=== PATIENT | female | born 1965 | race Caucasian/White ===

== ENCOUNTER → 2018-07-28 | Outpatient (CLI) | payer OTHER ==
--- NOTE | 2018-08-03 13:08 | RAD ---
DATE: 07/28/2018 EXAM: DIGITAL SCREEN BILAT W/CAD HISTORY: Routine screening, breast implants COMPARISON: 12/16/2015 This study was interpreted with the benefit of Computerized Aided Detection (CAD). Breast Density: HETERO The breast parenchyma is heterogenously dense, which could reduce sensitivity of mammography. Breast parenchyma level C. FINDINGS: Routine and implant exclusion views of both breasts were obtained in CC and MLO projections. The breast implants appear unchanged. No new or enlarging breast densities are seen. Benign type calcifications are noted. No suspicious microcalcifications have developed. IMPRESSION: There is no mammographic evidence of malignancy in either breast. BI-RADS CATEGORY: 2 BENIGN FINDING(S) RECOMMENDED FOLLOW-UP: 12M 12 MONTH FOLLOW-UP PQRS compliance statement: Patient information was entered into a reminder system with a target due date for the next mammogram. Mammography is a sensitive method for finding small breast cancers, but it does not detect them all and is not a substitute for careful clinical examination. A negative mammogram does not negate a clinically suspicious finding and should not result in delay in biopsying a clinically suspicious abnormality. "Our facility is accredited by the [employer] Mammography Program."
== END | disposition home or self-care (01) ==
LOC: MAMMO 13:29
PROVIDERS: ATTEND Nurse Practitioner Family
DX: Z12.31 Encounter for screening mammogram for malignant neoplasm of breast (principal); N64.89 Other specified disorders of breast; Z98.82 Breast implant status
CPT/HCPCS: 77067

== ENCOUNTER 2020-05-16 19:38 | Emergency (ER) | payer OTHER ==
[~2020-05-16] VITALS: Ht 175.3 cm; Wt 64.0 kg
--- NOTE | 2020-05-16 19:51 | PHYS DOC ---
General Adult EDM: Chief Complaint: ANIMAL BITE HPI: HPI: " I got bite by a dog at the [facility]... 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 Dogs was named Ehsan..he had all his shots...I got bit about 45 min. ago..." Patient is a 55 year old female who presents with above hx and complaints of an imal bite. Patient has approximately 2.5 cm laceration to the back of pain with contusions and ecchymosis. Distal neurovascular intact. There is some swelling at bite site. Patient is right-hand dominant. No recent travel. No severe ill contacts. No history immunosuppression. Patient states she is up-to-date with tetanus. Patient states the dog is also a up-to-date with vaccinations. [employer] was notified since the bite occurred within their endorsed accident. Advised patient the dog should remain confined to the next 14 days observed for rabies. Patient to take Augmentin 875 twice a day. Patient is to receive a IM injection of Rocephin 1 g while in the emergency department Review of Systems: Review of Systems: Constitutional: Denies fever or chills Eyes: Denies change in visual acuity HENT: Denies nasal congestion or sore throat Respiratory: Denies cough or shortness of breath Cardiovascular: Denies chest pain or edema GI: Denies abdominal pain, nausea, vomiting, bloody stools or diarrhea : Denies dysuria Musculoskeletal: Dog bite to right hand Integument: Denies rash Neurologic: Denies headache, focal weakness or sensory changes Endocrine: Denies polyuria or polydipsia Lymphatic: Denies swollen glands Psychiatric: Denies depression or anxiety Family History: Family History: Noncontributory Current Medications: Current Meds: See nursing for home meds Allergies: Allergies: No known drug allergies Physical Exam: PE: Constitutional: Well developed, well nourished, no acute distress, non-toxic ap pearance. [] HENT: Normocephalic, atraumatic, bilateral external ears normal, oropharynx moist, no oral exudates, nose normal. [] Eyes: PERRLA, EOMI, conjunctiva normal, no discharge. [] Neck: Normal range of motion, no tenderness, supple, no stridor. [] Cardiovascular:Heart rate regular rhythm, no murmur [] Lungs & Thorax: Bilateral breath sounds clear to auscultation [] Abdomen: Bowel sounds normal, soft, no tenderness, no masses, no pulsatile masses. [] Skin: Warm, dry, no erythema, no rash. [] Back: No tenderness, no CVA tenderness. [] Extremities: No tenderness, no cyanosis, no clubbing, ROM intact, no edema. Except bite ivan on back of right hand as per HPI Neurologic: Alert and oriented X 3, normal motor function, normal sensory function, no focal deficits noted. [] Psychologic: Affect normal, judgement normal, mood normal. [] EKG: EKG: [] Radiology/Procedures: Radiology/Procedures: [] Heart Score: C/O Chest Pain: N/A Risk Factors: Risk Factors: DM, Current or recent (<one month) smoker, HTN, HLP, family history of CAD, obesity. Risk Scores: Score 0 - 3: 2.5% MACE over next 6 weeks - Discharge Home Score 4 - 6: 20.3% MACE over next 6 weeks - Admit for Clinical Observation Score 7 - 10: 72.7% MACE over next 6 weeks - Early Invasive Strategies Course & Med Decision Making: Course & Med Decision Making Pertinent Labs and Imaging studies reviewed. (See chart for details) Procedure note-wound care-laceration cleaned and irrigated. Application and biotic ointment applied. Dressing applied. Patient monitor closely for infection. Patient received a IM injection of Rocephin 1 g. Patient take Augm entin 875 4 7 days. Monitor for infection. Dose to be under 5 next 14 days. Impression: 1. Dog bite right hand [] Dragon Disclaimer: Dragon Disclaimer: This electronic medical record was generated, in whole or in part, using a voice recognition dictation system. Departure Departure: Referrals: TIFFANY DALY (PCP) Scripts Amoxicillin/Potassium Clav (AUGMENTIN 875-125 TABLET) 1 Each Tablet 1 TAB PO BID for bite for 7 Days, #14 TAB 0 Refills Prov: VENUS THAKUR MD 05/16/20 Jose Alejandro Disclaimer This chart was dictated in whole or in part using Voice Recognition software in a busy, high-work load, and often noisy Emergency Department environment. It may contain unintended and wholly unrecognized errors or omissions. VENUS THAKUR MD May 16, 2020 19:51
[2020-05-16] MEDS ORDERED: cefTRIAXone IM 1 GM VIAL IM ONE (20:00)
[2020-05-16 20:02] VITALS: BP 175/85
[2020-05-16] MEDS ORDERED: AMOX1TAB61 PO (20:07)
[2020-05-16] MEDS ORDERED: BACITRACIN ZINC TOPICAL OINT PACKET. TP ONE (20:09)
--- NOTE | 2020-05-16 20:17 | RAD ---
Exam: Right hand 3 views INDICATION: Dog bite TECHNIQUE: Frontal, lateral and oblique views of the right hand Comparisons: None FINDINGS: Bone mineralization is normal. No acute or healed fractures. Soft tissue irregularity along the dorsa l aspect of the carpals. Joint spaces are well-maintained. IMPRESSION: Soft tissue irregularity along the dorsal aspect of the metacarpals without underlying osseous abnorm ality or radiopaque foreign body identified. Electronically signed by: Cachorro Jorgensen MD (05/16/2020 8:15 PM) DRE
== END 2020-05-16 20:23 | disposition home or self-care (01) ==
LOC: ER 19:38
DX: S61.451A Open bite of right hand, initial encounter (principal); W54.0XXA Bitten by dog, initial encounter; Y93.89 Activity, other specified; Y92.89 Other specified places as the place of occurrence of the external cause; Y99.8 Other external cause status
CPT/HCPCS: 73130; 96372; 99283; J0696